=== PATIENT | female | born 1970 | race Caucasian/White ===

== ENCOUNTER 2020-02-26 16:17 | Emergency (ER) | payer OTHER ==
[~2020-02-26] VITALS: Ht 152.4 cm; Wt 77.2 kg
--- OUTSIDE RECORDS SUMMARY | 2020-02-26 16:26 | CCD ---
Author Author [facility] Organization [facility] Address Unknown Phone Unavailable Support Name Relationship Address Phone TANVI MANLEY Next Of Kin [address] [place] [address] GUANAKITO TONEY Next Of Kin [address] [place] [address] OCTAVIO ARIZMENDI Next Of Kin [address] [place] [address] [place] [address] Re-disclosure Warning The records that you are about to access may contain information from federally-assisted alcohol or drug abuse programs. If such information is present, then the following federally mandated warning applies: This information has been disclosed to you from records protected by federal confidentiality rules (42 CFR part 2). The federal rules prohibit you from making any further disclosure of this information unless further disclosure is expressly permitted by the written consent of the person to whom it pertains or as otherwise permitted by 42 CFR part 2. A general authorization for the release of medical or other information is NOT sufficient for this purpose. The Federal rules restrict any use of the information to criminally investigate or prosecute any alcohol or drug abuse patient.The records that you are about to access may contain highly sensitive health information, the redisclosure of which is protected by Article 27-F of the [facility] Public Health law. If you continue you may have access to information: Regarding HIV / AIDS; Provided by facilities licensed or operated by the [facility] Office of Mental Health; or Provided by the [facility] Office for People With Developmental Disabilities. If such information is present, then the following [facility] mandated warning applies: This information has been disclosed to you from confidential records which are protected by state law. State law prohibits you from making any further disclosure of this information without the specific written consent of the person to whom it pertains, or as otherwise permitted by law. Any unauthorized further disclosure in violation of state law may result in a fine or intermediate sentence or both. A general authorization for the release of medical or other information is NOT sufficient authorization for further disc losure. Family History Family Member Name Family Member Gender Family Member Status Date o f Status Description Data Source(s) Unknown Female Problem MEDENT ([facility]) Unknown Female Problem MEDENT ([facility]) Unknown Female Problem MEDENT ([facility]) Unknown Female Problem MEDENT ([facility]) Encounters Encounter Providers Location Date Indications Data Source(s ) Outpatient [address] [facility] [id number] 06/04/2019 12:00:00 AM EDT eCW1 ([facility], [facility]) [facility] [address] [place] [address] 05/28/2019 12:00:00 AM EDT eCW1 ([facility]) [facility] [address] [place] [address] 04/28/2019 12:00:00 AM EDT eCW1 ([facility]) [facility] [address] [place] [address] 03/19/2019 12:00:00 AM EST eCW1 ([facility]) Insurance Providers Payer name Policy type / Coverage type Policy ID Covered constitution party ID Covered constitution party's relationship to taylor Policy Taylor Plan Information [facility] [id number] SP [id number] [facility] [id number] SP [id number] SELF PAY ONLY [id number] SP [id number] [employer] [place] 332/834 [id number] SP [id number] ANSI-Commercial [id number] [facility] U/W Commercial [id number] Self [id number] [employer] [place] [id number] SP SJBA [id number] [employer] [place] [id number] SP SJBA [id number] [place] 302/307 [id number] SP [id number] [employer] [place] 306/806 [id number] SP [id number] [employer] BCBS B [id number] S SJB [id number] [employer] [facility] U/W Commercial Self [place] Ins (NF) Workers Compensation Self YI INSURANCE O [id number] S 01 [id number] SELF PAY ONLY UNAVAILABLE UNAV AILABLE Y[place] INS CO OF [place] [id number] SP [id number] [employer] [place] 280/780 [id number] SP [id number] [facility] [place] [id number] SP [id number] Social History Code Duration Value Status Description Data Source(s ) Smoking 03/19/2019 12:00:00 AM EST Current Smoker completed Curre nt Smoker eCW1 ([facility]) Vital Signs ID Date Data Source UNK Name Value Range Interpretation Code Description Data Source(s) Diastolic blood pressure 74 mm[Hg] 74 mm[Hg] eCW1 ([facility]) Systolic blood pressure 118 mm[Hg] 118 mm[Hg] e CW1 ([facility]) Body mass index (BMI) [Ratio] 37.45 kg/m2 37.45 kg/m2 eCW1 ([facility]) Body height [in_us] eCW1 ([facility]) Body weight Measured 195 [lb_av] 195 [lb_av] eC W1 ([facility])
[2020-02-26] MEDS ORDERED: LIDOCAINE 5% (LIDODERM) PATCH TD ONE (16:45)
[2020-02-26] MEDS ORDERED: ACETAMINOPHEN 500 MG TAB PO ONE (16:45)
--- OUTSIDE RECORDS SUMMARY | 2020-02-26 17:02 | CCD ---
Author Author [facility] Organization [facility] Address Unknown Phone Unavailable Support Name Relationship Address Phone MARIANNE MANUEL Next Of Kin [address] [place] [address] TANVI MANLEY Next Of Kin [address] [place] [place] [address] GUANAKITO TONEY Next Of Kin [address] [place] [address] OCTAVIO ARIZMENDI Next Of Kin [address] [place] [address] OCTAVIO ARIZM[place] [address] Re-disclosure Warning The records that you are [...] is protected by Article 27-F of the [facility] Public Health law. If you continue you may have access to information: Regarding HIV / AIDS; Provided by facilities licensed or operated by the [facility] Office of Mental Health; or Provided by the [facility] Office for People With Developmental Disabilities. If such information is present, then the following [facility] mandated warning applies: This information has [...] law may result in a fine or assisted sentence or both. A general authorization for the release of medical or other information is NOT sufficient authorization for further disc losure. Family History Family Member Name Family Member Gender Family Member Status Date o f Status Description Data Source(s) Unknown Female Problem MEDENT ([facility]) Unknown Female Problem MEDENT ([facility]) Unknown Female Problem MEDENT ([facility]) Unknown Female Problem MEDENT ([facility]) Encounters Encounter Providers Location Date Indications Data Source(s ) Outpatient [address] [facility] [address] 06/04/2019 12:00:00 AM EDT eCW1 ([facility]) [facility] [address] [place] [address] 05/28/2019 12:00:00 AM EDT eCW1 ([facility]) [facility] [address] [place] [address] 04/28/2019 12:00:00 AM EDT eCW1 ([facility]) [facility] [address] [place] [address] 03/19/2019 12:00:00 AM EST eCW1 ([facility]) Insurance Providers Payer name Policy type / Coverage type Policy ID Covered democrat ID Covered democrat's relationship to taylor Policy Taylor Plan Information [facility] [id number] SP [id number] [facility] [id number] [id number] [facility] [id number] SP [id number] SELF PAY ONLY [id number] SP [id number] [facility] [place] 332/834 [id number] SP [id number] ANSI-Commercial [id number] [facility] U[facility]W Commercial [id number] Self [id number] [employer] [place] [id number] SP SJBA [id number] [place] [id number] SP SJBA [id number] [place] 302/307 [id number] SP [id number] [employer] [place] 306/806 [id number] SP [id number] [employer] BCBS B [id number] S [id number] [facility] [facility] U/W Commercial Self [place] Ins (NF) Workers Compensation Self YI INSURANCE O [id number] S 01 [id number] SELF PAY ONLY UNAVAILABLE UNAV AILABLE YI INS CO OF [place] [id number] SP [id number] [employer] [place] 280/780 [id number] SP [id number] [employer]ETNA [facility] [place] [id number] SP [id number] Social History Code Duration Value Status Description Data Source(s ) Smoking 03/19/2019 12:00:00 AM EST Current Smoker completed Curre nt Smoker eCW1 ([facility]) Vital Signs ID Date Data Source UNK Name Value Range Interpretation Code Description Data Source(s) Diastolic blood pressure 74 mm[Hg] 74 mm[Hg] eCW1 ([facility]) Systolic blood pressure 118 mm[Hg] 118 mm[Hg] e CW1 ([facility]) Body mass index (BMI) [Ratio] 37.45 kg/m2 37.45 kg/m2 eCW1 ([facility]) Body height [in_us] eCW1 ([facility]) Body weight Measured 195 [lb_av] 195 [lb_av] eC W1 ([facility])
--- NOTE | 2020-02-26 17:42 | REP ---
INDICATION: low back pain. COMPARISON: None. TECHNIQUE: Five views lumbosacral spine. FINDINGS: No compression fracture. There is normal alignment and lumbar lordosis. Tiny spurs are seen of L4 on L5. Disc spaces are relatively well preserved. There is sclerosis at the facets of L4-5 and L5-S1. The posterior elements are intact. There is slight curvature toward the left. IMPRESSION: No fracture or dislocation. Very mild degenerative changes. <Electronically signed by Darion Cooper > 02/26/20 [id number]
[2020-02-26] MEDS ORDERED: CYCL5TAB PO (17:55)
[2020-02-26] MEDS ORDERED: LIDO5DIS41 TOP (17:55)
[2020-02-26 17:59] VITALS: BP 103/57
[2020-02-26] MEDS ORDERED: **NOTE PATIENT COMMENT** MISC XX SCH (21:00)
== END 2020-02-26 18:11 | disposition home or self-care (01) ==
LOC: M ED 16:17
DX: M51.36 Other intervertebral disc degeneration, lumbar region (principal); M25.78 Osteophyte, vertebrae

== ENCOUNTER → 2021-10-09 | Outpatient (CLI) | payer OTHER ==
[~2021-10-09] MED LIST: CYCL5TAB PO; LIDO5DIS41 TOP
[2021-10-09 07:43] LABS: HEMATOCRIT 47.2 % (36.0-47.0); HEMOGLOBIN 15.8 g/dl (12.0-15.5); MEAN CORPUSCULAR HEMOGLOBIN 29.4 pg (27.0-33.0); MEAN CORPUSCULAR HGB CONC 33.5 g/dl (32.0-36.5); MEAN CORPUSCULAR VOLUME 87.7 fl (80.0-96.0); PLATELET COUNT, AUTOMATED 263 10^3/uL (150-450); RED BLOOD COUNT 5.38 10^6/uL (4.00-5.40); WHITE BLOOD COUNT 6.2 10^3/uL (4.0-10.0)
[2021-10-09 07:59] LABS: HEMOGLOBIN A1c 5.5 %
[2021-10-09 08:32] LABS: ALT/SGPT 41 U/L (12-78); BILIRUBIN,TOTAL 1.3 MG/DL (0.2-1.0); BLOOD UREA NITROGEN 18 MG/DL (7-18); CALCIUM LEVEL 9.6 MG/DL (8.5-10.1); CARBON DIOXIDE LEVEL 27 MEQ/L (21-32); CHLORIDE LEVEL 107 MEQ/L (98-107); CHOLESTEROL LEVEL 223 MG/DL (<200); CHOLESTEROL RISK RATIO 4.372 (<5); CREATININE FOR GFR 0.86 MG/DL (0.55-1.30); GLOMERULAR FILTRATION RATE > 60.0 (>51); GLUCOSE, FASTING 106 MG/DL (70-100); HDL CHOLESTEROL 51 MG/DL (>40); LDL CHOLESTEROL 136 MG/DL (<100); NON-HDL-C 172 MG/DL; POTASSIUM SERUM 4.1 MEQ/L (3.5-5.1); SODIUM LEVEL 140 MEQ/L (136-145); TOTAL PROTEIN 7.5 GM/DL (6.4-8.2); TRIGLYCERIDES LEVEL 178 MG/DL (<150)
[2021-10-09 08:57] LABS: TOTAL 25(OH) VITAMIN D 30.7 NG/ML (30.0-100.0)
== END ==
LOC: M RAD 06:46
PROVIDERS: ATTEND Family Medicine
DX: I10 Essential (primary) hypertension (principal); R53.83 Other fatigue; E03.9 Hypothyroidism, unspecified